=== PATIENT | female | born 1960 | race Caucasian/White ===

== ENCOUNTER → 2019-12-21 11:19 | Outpatient (BNVA) | payer OTHER, SELFPAY | PROVIDERS: Family Provider Family Medicine; PCP Nurse Practitioner; Visit Provider Family Medicine | DX: E87.6 Hypokalemia (principal); K64.4 Residual hemorrhoidal skin tags | CPT/HCPCS: 80048 ==

== ENCOUNTER → 2020-01-24 14:28 | Outpatient (BNVA) | payer OTHER, SELFPAY | PROVIDERS: Family Provider Family Medicine; PCP Nurse Practitioner; Visit Provider Family Medicine | DX: Z12.31 Encounter for screening mammogram for malignant neoplasm of breast (principal); Z01.419 Encounter for gynecological examination (general) (routine) without abnormal findings | CPT/HCPCS: 88175 ==

== ENCOUNTER 2020-03-04 10:02 | Outpatient (CLI) | payer OTHER, SELFPAY ==
--- NOTE | 2020-03-04 10:00 | MM_ITS ---
WS: [id number] BILATERAL DIGITAL SCREENING MAMMOGRAPHY WITH CAD CLINICAL INFORMATION: screening mammogram HISTORY: Screening mammogram. No current complaints. COMPARISON: TECHNIQUE: Bilateral CC and MLO views. FINDINGS: Scattered fibroglandular densities bilaterally. No suspicious focal mass, asymmetry, calcifications, or architectural distortion. No evidence of malignancy. A few incidental intramammary lymph nodes lef t breast. MM/[place] [id number] IMPRESSION: BI-RADS: 2-Benign FOLLOW UP: 1 Year Follow-up Recommend return to annual screening mammography.
== END 2020-03-04 10:03 | disposition home or self-care (01) ==
LOC: RADSHAW 10:07
PROVIDERS: PCP Family Medicine; Visit Provider Family Medicine
DX: Z12.31 Encounter for screening mammogram for malignant neoplasm of breast (principal)
CPT/HCPCS: 77067

== ENCOUNTER → 2020-06-02 15:06 | Outpatient (BNVA) | payer BC, SELFPAY | PROVIDERS: PCP Family Medicine; Visit Provider Nurse Practitioner Family | DX: Z11.59 Encounter for screening for other viral diseases (principal); J06.9 Acute upper respiratory infection, unspecified; Z20.828 Contact with and (suspected) exposure to other viral communicable diseases | CPT/HCPCS: 87635 ==

== ENCOUNTER → 2020-08-06 09:13 | Outpatient (BNVA) | payer SELFPAY | PROVIDERS: PCP Family Medicine; Visit Provider Family Medicine | DX: I10 Essential (primary) hypertension (principal); E78.5 Hyperlipidemia, unspecified; E11.9 Type 2 diabetes mellitus without complications; K21.9 Gastro-esophageal reflux disease without esophagitis; E87.6 Hypokalemia | CPT/HCPCS: 80053; 80061; 82043; 83036; 85025 ==

== ENCOUNTER → 2020-10-24 09:45 | Outpatient (BNVA) | payer SELFPAY | PROVIDERS: PCP Family Medicine; Visit Provider Family Medicine | DX: E11.9 Type 2 diabetes mellitus without complications (principal); E78.5 Hyperlipidemia, unspecified | CPT/HCPCS: 83036 ==

== ENCOUNTER → 2020-11-03 10:27 | Outpatient (BNVA) | payer SELFPAY | PROVIDERS: PCP Family Medicine; Visit Provider Family Medicine | DX: E78.5 Hyperlipidemia, unspecified (principal); E11.9 Type 2 diabetes mellitus without complications | CPT/HCPCS: 80053; 80061 ==

== ENCOUNTER → 2021-05-29 09:53 | Outpatient (BNVA) | payer SELFPAY | PROVIDERS: PCP Family Medicine; Visit Provider Family Medicine | DX: E11.9 Type 2 diabetes mellitus without complications (principal); E78.5 Hyperlipidemia, unspecified; I10 Essential (primary) hypertension | CPT/HCPCS: 80053; 80061; 82043; 83036 ==

== ENCOUNTER → 2021-07-15 16:30 | Outpatient (BNVA) | payer OTHER, SELFPAY | PROVIDERS: PCP Family Medicine; Visit Provider Nurse Practitioner Family | DX: Z20.822 Contact with and (suspected) exposure to COVID-19; Z20.828 Contact with and (suspected) exposure to other viral communicable diseases | CPT/HCPCS: 87635 ==

== ENCOUNTER → 2021-11-25 09:09 | Outpatient (BNVA) | payer SELFPAY | PROVIDERS: PCP Family Medicine; Visit Provider Family Medicine | DX: I10 Essential (primary) hypertension (principal); E11.9 Type 2 diabetes mellitus without complications; E78.5 Hyperlipidemia, unspecified; M79.671 Pain in right foot; G47.33 Obstructive sleep apnea (adult) (pediatric); E78.2 Mixed hyperlipidemia; K21.9 Gastro-esophageal reflux disease without esophagitis; L25.9 Unspecified contact dermatitis, unspecified cause; F17.210 Nicotine dependence, cigarettes, uncomplicated; Z68.31 Body mass index [BMI] 31.0-31.9, adult | CPT/HCPCS: 80053; 83036; 85025 ==

== ENCOUNTER → 2021-12-02 10:40 | Outpatient (BNVA) | payer SELFPAY | PROVIDERS: PCP Family Medicine; Visit Provider Family Medicine | DX: R79.89 Other specified abnormal findings of blood chemistry (principal) | CPT/HCPCS: 80074 ==

== ENCOUNTER → 2022-08-03 14:36 | Outpatient (BNVA) | payer SELFPAY | PROVIDERS: PCP Family Medicine; Visit Provider Family Medicine | DX: E11.9 Type 2 diabetes mellitus without complications (principal); E78.2 Mixed hyperlipidemia; I10 Essential (primary) hypertension | CPT/HCPCS: 80053; 80061; 82043; 83036; 85025 ==

== ENCOUNTER → 2023-01-31 13:33 | Outpatient (BNVA) | payer OTHER, SELFPAY | PROVIDERS: PCP Family Medicine; Visit Provider Family Medicine | DX: E11.9 Type 2 diabetes mellitus without complications (principal) | CPT/HCPCS: 80053; 83036 ==

== ENCOUNTER 2023-02-10 08:56 | Outpatient (CLI) | payer OTHER, SELFPAY ==
--- NOTE | 2023-02-10 09:08 | MM_ITS ---
WS: [id number] VIEWS: MLO and CC views both breasts. 3D digital tomosynthesis is also included in this exam. Comparison made with prior exam of 08/28/2012, 12/02/2016, 05/11/2017, 03/04/2020.. Findings: There was no sign of mass, architectural distortion or suspicious calcification in either breast. Th ere are areas of scattered fibroglandular density MM/[id number] Impression: BI-RADS: 2-Benign finding. FOLLOW-UP: 1 Year Follow-up This mammogram was also analyzed by the Computer Aided Detection System R2 Imag e Actuarial Technician.
== END 2023-02-10 08:57 | disposition home or self-care (01) ==
LOC: RAD 09:03
PROVIDERS: PCP Family Medicine; Visit Provider Family Medicine
DX: Z12.31 Encounter for screening mammogram for malignant neoplasm of breast (principal)
CPT/HCPCS: 77063; 77067; 80053; 83036

== ENCOUNTER 2023-02-14 08:41 | Outpatient (CLI) | payer OTHER, SELFPAY ==
--- NOTE | 2023-02-14 08:45 | US_ITS ---
WS: [id number] RIGHT UPPER QUADRANT ULTRASOUND HISTORY: elevated lft's COMPARISON: None available. Liver: 14.0 cm in length. Normal size liver. There are a few areas of decreased echogenicity scattere d throughout the liver which are most typical for focal fatty sparing. No mass or increased vasculari ty. Portal Vein: Normal hepatopetal flow with monophasic waveform. Gallbladder: Normally distended gallbladder with no stones or wall thickening. CBD: 0.4 cm Pancreas: Normal size and echogenicity. Right kidney: 12.2 cm in length. Normal size kidney. No hydronephrosis. Cortical cyst mid kidney lisandra ures 1.3 x 1.2 x 1.5 cm. Aorta and IVC: Unremarkable abdominal aorta and IVC. No ascites. US/US liver [id number] IMPRESSION: 1. Normal gallbladder. 2. Normal size liver with heterogeneity. Heterogeneity is due to hepatic steat osis with focal areas of sparing. 3. RIGHT renal cyst, maximum diameter 1.5 cm.
== END 2023-02-14 08:42 | disposition home or self-care (01) ==
LOC: RAD 08:43
PROVIDERS: PCP Family Medicine; Visit Provider Family Medicine
DX: R79.89 Other specified abnormal findings of blood chemistry (principal); K76.0 Fatty (change of) liver, not elsewhere classified
CPT/HCPCS: 76705

== ENCOUNTER → 2023-10-31 12:18 | Outpatient (BNVA) | payer OTHER, SELFPAY | PROVIDERS: PCP Family Medicine; Visit Provider Family Medicine | DX: E11.9 Type 2 diabetes mellitus without complications (principal); Z13.6 Encounter for screening for cardiovascular disorders | CPT/HCPCS: 80053; 80061; 82043; 83036; 85025 ==

== ENCOUNTER 2023-12-12 09:55 | Day surgery (SDC) | payer OTHER, SELFPAY ==
[2023-12-12] VITALS (10 sets, daily range): BP systolic 102–151; BP diastolic 61–88; PULSE 62–86; RESP 14–21; TEMP 36.4–36.6; O2SAT 91–96; BMI 30.7
--- NOTE | 2023-12-12 06:30 | W.PM.OPSFHP ---
Same Day Surgery H&P Indication for Procedure/HPI DATE OF PROCEDURE: December 12, 2023 CHIEF COMPLAINT/INDICATIONFOR SURGICAL PROCEDURE: rectal pain and bleeding PREOP DIAGNOSIS: hemorrhoids and skin tags PLANNED PROCEDURE: Operation Date: 12/12/23 11:20 Proposed Procedures p Exam Under Anesthesia(Not Applicable) - Ken Cabrera MD s Hemorrhoidectomy(Not Applicable) - Ken Cabrera MD Medications/Allergies* Home Medications Medication Instructions Recorded Confirmed Type diphenoxylate-atropine 2.5 1 tab PO BID PRN Diarrhea 10/08/19 12/09/23 History mg-0.025 mg tablet (Lomotil) escitalopram oxalate 20 mg tablet 30 mg PO DAILY 12/09/23 12/09/23 History (Lexapro) losartan 100 mg tablet 50 mg PO BID 12/09/23 12/09/23 History metoprolol succinate 100 mg 100 mg PO DAILY 12/09/23 12/09/23 History tablet,extended release 24 hr nystatin 100,000 unit/gram topical 1 applic topical BID PRN Rash 12/09/23 12/09/23 History powder potassium chloride 10 mEq 20 meq PO BID 12/09/23 12/09/23 History capsule,extended release rosuvastatin 10 mg tablet 10 mg PO DAILY 12/09/23 12/09/23 History Allergies/Adverse Reactions Allergy/AdvReac Type Severity Reaction Status Date / Time venlafaxine [From Effexor] Allergy Severe ALGY-Anaphy Verified 12/09/23 12:33 laxis Sulfa (Sulfonamide Allergy Intermediate ALGY-Rash Verified 12/09/23 12:33 Antibiotics) Pertinent History/Comorbid Conditions* Medical History (Updated 10/31/23 @ 12:14 by Sapphire Bean DO) ILEANA (obstructive sleep apnea) Type 2 diabetes mellitus, without long-term current use of insulin Arthritis PTSD (post-traumatic stress disorder) Hypokalemia GERD (gastroesophageal reflux disease) Hyperlipidemia Hypertension Anxiety Surgical History (Updated 01/24/20 @ 14:19 by Sapphire Bean DO) History of colonoscopy (~2009) S/P tubal ligation (~1989) S/P tonsillectomy (~1965) S/P rhinoplasty (~2009) Family History (Updated 10/08/19 @ 12:27 by Iris Grayson LPN) Hypertension Mother Son Social History Smoking and tobacco/nicotine status: light tobacco/nicotine user (smokes cigars occasionally) cigars Second hand smoke exposure: Yes Alcohol intake: former Substance/Drug Use: never Pertinent Exam Findings alert, oriented x 3, clear to auscultation bilaterally and regular rate & rhythm Recommendations Surgery/Procedure today Coding Level of Care Code Acute Code for Chg Nini
[2023-12-12] MEDS: sodium chloride 0.9% 1,000 ML 30 ML IV (10:30)
--- NOTE | 2023-12-12 10:43 | PC.NURSE ---
pt states colon prep results was watery.
[2023-12-12 10:45] LABS: Glucose Point of Care 140 mg/dL (70-110)
--- NOTE | 2023-12-12 11:03 | P.ANESASSM_ITS ---
Pre-Anesthetic Assessment Height/Weight: Height 1.57 m Weight 76.204 kg Temp Pulse Resp BP Pulse Ox O2 Del Method 97.6 F 62 18 139/87 94 Room Air 12/12/23 10:18 12/12/23 10:18 12/12/23 10:18 12/12/23 10:18 12/12/23 10:18 12/12/23 10:41 Preop Diagnosis: hemorrhoids and skin tags Operation Date: 12/12/23 11:20 Proposed Procedures p Exam Under Anesthesia(Not Applicable) - Ken Cabrera MD s Hemorrhoidectomy(Not Applicable) - Ken Cabrera MD Last intake: Intake Last Liquid Date 12/11/23 Last Liquid Time 23:15 Last Solid Date 12/11/23 Last Solid Time 12:00 Social No alcohol and No tobacco Exam alert, oriented x 3, clear to auscultation bilaterally and regular rate & rhythm Airway Submandibular: Other (Receeding Mandible ) Cervical ROM: within normal limits Mallampati: Class III Pulmonary Sleep Apnea CV/HEM Arrythmia and Hypertension GI Gastroesophageal Reflux Disease Metabolic Diabetes Mellitus and Hyperlipidemia Neuropsych Anxiety Anesthetic Plan ASA status: 3 Anesthesia: General Medications/Allergies Home Medications Medication Instructions Recorded Confirmed Last Taken Type diphenoxylate-atropine 2.5 1 tab PO BID PRN Diarrhea 10/08/19 12/09/23 Unknown History mg-0.025 mg tablet (Lomotil) alprazolam 0.25 mg tablet 0.25 mg PO TID PRN anxiety #90 tabs 11/25/21 12/09/23 Unknown Rx CPAP mask, tubing and supplies #1 ea 06/03/23 11/15/23 Unknown Rx omeprazole 20 mg capsule,delayed 20 mg PO DAILY #90 caps 09/29/23 12/09/23 12/11/23 Rx release empagliflozin 10 mg tablet 10 mg PO DAILY #90 tabs 11/01/23 12/12/23 12/11/23 09:00 Rx (Jardiance) liraglutide 0.6 mg/0.1 mL (18 mg/3 1.8 mg (0.3 mL) SUBCUT DAILY 90 11/01/23 12/09/23 12/05/23 Rx mL) subcutaneous pen injector days #27 mL (Victoza 3-Roly) metformin 500 mg tablet 500 mg PO BID 90 days #180 tabs 03/19/24 04/26/24 04/28/24 Rx escitalopram oxalate 20 mg tablet 30 mg PO DAILY 12/09/23 12/09/23 12/11/23 History (Lexapro) losartan 100 mg tablet 50 mg PO BID 12/09/23 12/09/23 12/12/23 08:30 History metoprolol succinate 100 mg 100 mg PO DAILY 12/09/23 12/09/23 12/11/23 History tablet,extended release 24 hr nystatin 100,000 unit/gram topical 1 applic topical BID PRN Rash 12/09/23 12/09/23 Unknown History powder potassium chloride 10 mEq 20 meq PO BID 12/09/23 12/09/23 12/12/23 08:30 History capsule,extended release rosuvastatin 10 mg tablet 10 mg PO DAILY 12/09/23 12/09/23 12/11/23 History Allergies Allergy/AdvReac Type Severity Reaction Status Date / Time venlafaxine [From Effexor] Allergy Severe ALGY-Anaphy Verified 12/09/23 12:33 laxis Sulfa (Sulfonamide Allergy Intermediate ALGY-Rash Verified 12/09/23 12:33 Antibiotics) Current Medications Generic Name Dose Route Start Last Admin Trade Name Freq PRN Reason Stop Dose Admin Sodium Chloride 1,000 mls @ 30 mls/hr 12/12/23 10:00 12/12/23 10:30 Sodium Chloride 0.9% IV 12/13/23 09:59 30 mls/hr .Q24H SANDIE Administration PFSH Anesthesia Medical History ILEANA (obstructive sleep apnea) Type 2 diabetes mellitus, without long-term current use of insulin Arthritis PTSD (post-traumatic stress disorder) Hypokalemia GERD (gastroesophageal reflux disease) Hyperlipidemia Hypertension Anxiety Surgical History History of colonoscopy (~2009) S/P tubal ligation (~1989) S/P tonsillectomy (~1965) S/P rhinoplasty (~2009) Family History Mother Hypertension Son Hypertension Social History Smoking and tobacco/nicotine status: light tobacco/nicotine user (smokes cigars occasionally) cigars Second hand smoke exposure: Yes Alcohol intake: former Substance/Drug Use: never Data Anesthesia Cardiac Studies: No Data to Display
[2023-12-12] MEDS: ceFAZolin 2,000 MG in sodium chloride 0.9% (plus) 50 ML 100 MG IV (13:31)
[2023-12-12] MEDS: lidocaine 2% jelly 1 APPLIC/6 ML TUBE 2 APPLIC TOPICAL (14:13)
[2023-12-12] MEDS: lidocaine-epi 1% PF 1:200,000 30 mL SDV 10 ML INJECTION (14:14)
[2023-12-12] MEDS: BUPivacaine 0.25% INJ 10 mL INJECTION (14:15)
--- NOTE | 2023-12-12 14:33 | P.OP_ITS ---
Operative Report Date of procedure: December 12, 2023 Pre-op diagnosis: Hemorrhoids Post-op diagnosis: Internal hemorrhoids, skin tag Post-op findings: There was a anterior column internal hemorrhoid with an associated external skin tag appeared to be very large in nature, likely residual from previous episodes of external hemorrhoid. On bilateral posterolateral columns only 2 small skin tags were noted. Procedure done: 1 column Hemorrhoidectomy and excision of a skin tag. Exam under anesthesia Specimens removed/disposition: Hemorrhoid anterior Surgeon: Ken Cabrera MD Industrial Technology Education Teacher: GABRIEL OR Staff Estimated blood loss: 10 Complications: none Brief History: 63-year-old female with longstanding history of hemorrhoids and skin tags who presented to my clinic for possible excision. As patient had failed nonoperative management with decided to proceed with hemorrhoidectomy Procedure: Patient was brought into the OR. General esthesia was given. Patient was placed in the prone jackknife position. The perirectal region was prepped and draped in the usual sterile fashion and a timeout was conducted. Local anesthesia was infiltrated in the Allie-rectal tissue I then proceeded with a exam under anesthesia, digital rectal examination was done and showed findings of an anterior column internal hemorrhoid. This was noted to be associated with a large skin tag on the external anal skin. No evidence of hemorrhoids on the posterolateral columns that could be identified during the examination. There was a small posterolateral skin tags. I then proceeded to insert a Donal son retractor into the anus to provide better exposure, anoscopy confirmed the findings described. I then decided to proceed with an anterior column hemorrhoidectomy and excision of the associated skin tag. I grasped the hemorrhoid with an Allis clamp and retracted towards the anal margin. I then proceeded to use a number 3-year-old Chromic Gut suture in a [id number] configuration to ligate the outflow of the hemorrhoid. This suture was tied and preserved to complete the closure. I then proceeded to use electrocautery to excise the external skin tag and continue these excision Into the anal mucosa to the area where I ligated the outflow corresponding to the apex of the wound. Once the superficial skin and mucosa were incised I then used gentle traction and blunt dissection to fibers from the internal and external anal sphincters. Careful consideration was made to preserve the integrity of the sphincters. I then used electrocautery to completely transect the hemorrhoid bundle. The specimen was sent to pathology. Using the 3-0 chromic the used to ligate the outflow I then proceeded to close the mucosa after verifying hemostasis, the mucosa was correctly aligned and careful consideration was made to provide very good alignment of the mucocutaneous junction. A separate #3-0 chromic was used for the skin from the level of the mucocutaneous junction to close the area where the skin tag was excised. At the end of the procedure hemostasis was verified. The rectal cavity was filled with 2% lidocaine gel and Gelfoam soaking Betadine was then placed in the rectal vault in close proximity to the newly created wound. A sterile dressing was applied. At the end of the procedure all counts were correct, the patient tolerated well the procedure was extubated and transferred to PACU in stable condition.
--- NOTE | 2023-12-12 15:04 | ANE.PACU2 ---
Inpatient post-anesthesia follow up: Vital signs: Temperature 97.9 F Pulse Rate 78 Respiratory Rate 18 Blood Pressure 140/79 Pulse Oximetry 91 Oxygen Delivery Me thod Room Air Oxygen Flow Rate 8 Fraction of Inspir ed Oxygen Hydration adequate: Yes Nausea and vomiting: No Pain level: 2 Mental status: Baseline
[2023-12-12] MEDS: ondansetron 2 mg/ML SDV 2 mL 4 MG IVP (15:24)
--- NOTE | 2023-12-12 15:25 | PC.NURSE ---
1524 - pt co nausea upon entering room in phase 2 - 4mg ivp zofran given per this nurse - no emesis noted
== END 2023-12-12 17:05 | disposition home or self-care (01) ==
PROVIDERS: PCP Family Medicine; Visit Provider Surgery
PROC: (CPT 46255; principal; 2023-12-12 11:10)
PROC: (CPT 46255; 2023-12-12 11:10)
DX: K64.8 Other hemorrhoids (principal); K64.4 Residual hemorrhoidal skin tags; G47.33 Obstructive sleep apnea (adult) (pediatric); E11.9 Type 2 diabetes mellitus without complications; E78.5 Hyperlipidemia, unspecified; I10 Essential (primary) hypertension; F41.9 Anxiety disorder, unspecified; F17.200 Nicotine dependence, unspecified, uncomplicated
CPT/HCPCS: 46255; 36416; 82962; 88304; J0690; J1100; J1885; J2250; J2405; J2704; J2710; J3010; J3490; J7030

== ENCOUNTER 2024-03-22 07:30 | Day surgery (SDC) | payer OTHER, SELFPAY ==
--- NOTE | 2024-03-22 06:00 | W.PM.OPSFHP ---
Same Day Surgery H&P Indication for Procedure/HPI DATE OF PROCEDURE: March 22, 2024 CHIEF COMPLAINT/INDICATIONFOR SURGICAL PROCEDURE: need for screening colonoscopy PREOP DIAGNOSIS: need for screening colonoscopy PLANNED PROCEDURE: Operation Date: 03/22/24 08:20 Proposed Procedures p Colonoscopy 41607, G0105, K64.4, Z12.11(Not Applicable) - Ken Cabrera MD Medications/Allergies* Home Medications Medication Instructions Recorded Confirmed Type diphenoxylate-atropine 2.5 1 tab PO BID PRN Diarrhea 10/08/19 03/19/24 History mg-0.025 mg tablet (Lomotil) potassium chloride 10 mEq 20 meq PO BID 12/09/23 03/19/24 History capsule,extended release Allergies/Adverse Reactions Allergy/AdvReac Type Severity Reaction Status Date / Time venlafaxine [From Effexor] Allergy Severe ALGY-Anaphy Verified 02/01/24 09:46 laxis Sulfa (Sulfonamide Allergy Intermediate ALGY-Rash Verified 02/01/24 09:46 Antibiotics) Pertinent History/Comorbid Conditions* Medical History (Updated 10/31/23 @ 12:14 by Sapphire Bean DO) ILEANA (obstructive sleep apnea) Type 2 diabetes mellitus, without long-term current use of insulin Arthritis PTSD (post-traumatic stress disorder) Hypokalemia GERD (gastroesophageal reflux disease) Hyperlipidemia Hypertension Anxiety Surgical History (Updated 01/24/20 @ 14:19 by Sapphire Bean DO) History of colonoscopy (~2009) S/P tubal ligation (~1989) S/P tonsillectomy (~1965) S/P rhinoplasty (~2009) Family History (Updated 10/08/19 @ 12:27 by Iris Grayson LPN) Hypertension Mother Son Social History Smoking and tobacco/nicotine status: current every day tobacco/nicotine user cigars Second hand smoke exposure: Yes Alcohol intake: former Substance/Drug Use: never Pertinent Exam Findings alert, oriented x 3, clear to auscultation bilaterally and regular rate & rhythm Recommendations Surgery/Procedure today Coding Level of Care Code Acute Code for Chg Fwd
--- NOTE | 2024-03-22 07:50 | ANES.PREANE2 ---
Pre-Anesthetic Assessment Height/Weight: Height 1.57 m Preop Diagnosis: need for screening colonoscopy Operation Date: 03/22/24 08:20 Proposed Procedures p Colonoscopy 01983, G0105, K64.4, Z12.11(Not Applicable) - Ken Cabrera MD Was Beta Armen taken within 24 hours: Yes Was Clonidine taken within 24 hours: N/A Social Tobacco and No alcohol 1 pack a week Exam alert, oriented x 3, clear to auscultation bilaterally and regular rate & rhythm Airway Submandibular: within normal limits Cervical ROM: within normal limits Mallampati: Class II Dentition: full History/ROS No significant history except as noted Pulmonary Sleep Apnea On Cpap is compliant with it CV/HEM Hypertension None reported GI None reported Musc/skel None reported Neuropsych Anxiety Anesthetic Plan ASA status: 2 Anesthesia: MAC Risk of > 500 ml blood loss (7ml/kg in children): No Medications/Allergies Home Medications Medication Instructions Recorded Confirmed Last Taken Type diphenoxylate-atropine 2.5 1 tab PO BID PRN Diarrhea 10/08/19 03/22/24 Unknown History mg-0.025 mg tablet (Lomotil) CPAP mask, tubing and supplies #1 ea 06/03/23 03/19/24 Unknown Rx potassium chloride 10 mEq 20 meq PO BID 12/09/23 03/22/24 03/21/24 History capsule,extended release polyethylene glycol 3350 17 gram 17 g PO DAILY #14 ea 12/12/23 03/22/24 Unknown Rx oral powder packet (Miralax) alprazolam 0.25 mg tablet 0.25 mg PO TID PRN anxiety #90 tabs 01/15/24 03/22/24 03/22/24 Rx empagliflozin 10 mg tablet 10 mg PO DAILY #90 tabs 02/15/24 03/22/24 03/21/24 Rx (Jardiance) liraglutide 0.6 mg/0.1 mL (18 mg/3 1.8 mg (0.3 mL) SUBCUT DAILY 90 02/15/24 03/22/24 03/21/24 Rx mL) subcutaneous pen injector days #27 mL (Victoza 3-Roly) escitalopram oxalate 20 mg tablet 30 mg (1.5 x 20 mg) PO DAILY #30 03/13/24 03/22/24 03/21/24 Rx (Lexapro) tabs losartan 100 mg tablet 50 mg (1/2 x 100 mg) PO BID #30 03/13/24 03/22/24 03/21/24 Rx tabs metformin 500 mg tablet 500 mg PO BID 90 days #60 tabs 03/13/24 03/22/24 03/21/24 Rx metoprolol succinate 100 mg 100 mg PO DAILY #30 tabs 03/13/24 03/22/24 03/21/24 Rx tablet,extended release 24 hr omeprazole 20 mg capsule,delayed 20 mg PO DAILY #30 caps 03/13/24 03/22/24 03/21/24 Rx release rosuvastatin 10 mg tablet 10 mg PO DAILY #90 tabs 03/20/24 03/22/24 03/21/24 Rx Allergies Allergy/AdvReac Type Severity Reaction Status Date / Time venlafaxine [From Effexor] Allergy Severe ALGY-Anaphy Verified 03/22/24 07:45 laxis Sulfa (Sulfonamide Allergy Intermediate ALGY-Rash Verified 03/22/24 07:45 Antibiotics) [facility] Anesthesia Medical History ILEANA (obstructive sleep apnea) Type 2 diabetes mellitus, without long-term current use of insulin Arthritis PTSD (post-traumatic stress disorder) Hypokalemia GERD (gastroesophageal reflux disease) Hyperlipidemia Hypertension Anxiety Surgical History History of colonoscopy (~2009) S/P tubal ligation (~1989) S/P tonsillectomy (~1965) S/P rhinoplasty (~2009) Family History Mother Hypertension Son Hypertension Social History Smoking and tobacco/nicotine status: current every day tobacco/nicotine user cigars Second hand smoke exposure: Yes Alcohol intake: former Substance/Drug Use: never Data Anesthesia Cardiac Studies: No Data to Display
[2024-03-22 07:57] VITALS: BP 144/90; PULSE 73; RESP 18; TEMP 36.4; O2SAT 93; BMI 30.7
[2024-03-22 08:17] LABS: Glucose Point of Care 164 mg/dL (70-110)
[2024-03-22] MEDS: sodium chloride 0.9% 1,000 ML 30 ML IV (08:19)
[2024-03-22 09:14] VITALS: BP 80/58; PULSE 68; RESP 14; TEMP 36.1; O2SAT 96
[2024-03-22 09:29] VITALS: BP 119/86; PULSE 61; RESP 16; O2SAT 94
[2024-03-22 09:44] VITALS: BP 140/80; PULSE 63; RESP 18; O2SAT 93
--- NOTE | 2024-03-22 10:00 | ANE.PACU2 ---
Inpatient post-anesthesia follow up: Airway intact: Yes Vital signs: Temperature 97 F Pulse Rate 63 Respiratory Rate 18 Blood Pressure 140/80 Pulse Oximetry 93 Oxygen Delivery Me thod Room Air Oxygen Flow Rate 4 Fraction of Inspir ed Oxygen Hydration adequate: Yes Nausea and vomiting: No Pain level: 1 Mental status: Baseline
== END 2024-03-22 10:00 | disposition home or self-care (01) ==
PROVIDERS: PCP Family Medicine Adult Medicine; Visit Provider Surgery
PROC: 0DJD8ZZ Inspection of Lower Intestinal Tract, Via Natural or Artificial Opening Endoscopic (ICD-10-PCS; CPT 45378; principal; 2024-03-22 08:20)
DX: Z12.11 Encounter for screening for malignant neoplasm of colon (principal); D12.2 Benign neoplasm of ascending colon; D12.8 Benign neoplasm of rectum; G47.33 Obstructive sleep apnea (adult) (pediatric); E11.9 Type 2 diabetes mellitus without complications; K21.9 Gastro-esophageal reflux disease without esophagitis; E78.5 Hyperlipidemia, unspecified; I10 Essential (primary) hypertension; F41.9 Anxiety disorder, unspecified; F17.200 Nicotine dependence, unspecified, uncomplicated
CPT/HCPCS: 36416; 45380; 45385; 82962; 88305; J2704; J7030

== ENCOUNTER → 2024-03-29 10:25 | Outpatient (BNVA) | payer OTHER, SELFPAY | PROVIDERS: PCP Family Medicine Adult Medicine; Visit Provider Family Medicine Adult Medicine | DX: E78.2 Mixed hyperlipidemia (principal); I10 Essential (primary) hypertension; E11.9 Type 2 diabetes mellitus without complications | CPT/HCPCS: 80053; 80061; 83036; 85025 ==

== ENCOUNTER 2024-09-25 11:02 | Outpatient (CLI) | payer OTHER, SELFPAY ==
--- NOTE | 2024-09-25 11:09 | MM_ITS ---
WS: [id number] BILATERAL 3D TOMOSYNTHESIS DIGITAL SCREENING MAMMOGRAPHY WITH CAD CLINICAL INFORMATION: SCREENING HISTORY: Screening mammogram. No current complaints. COMPARISON: 2022 TECHNIQUE: Bilateral CC and MLO views. FINDINGS: Scattered fibroglandular densities bilaterally. No suspicious focal mass, asymmetry, calcifications, or architectural distortion. No evidence of malignancy. A few incidental punctate calcifications. MM/MM scr tomosynthesis [id number] IMPRESSION: DENSITY: There are scattered areas of fibroglandular density. BI-RADS: 2 - Benign. FOLLOW UP: 1 Year Follow-up Recommend return to annual screening mammography.
== END 2024-09-25 11:03 | disposition home or self-care (01) ==
LOC: RAD 11:03
PROVIDERS: PCP Family Medicine; Visit Provider Family Medicine
DX: Z12.31 Encounter for screening mammogram for malignant neoplasm of breast (principal); R92.323 Mammographic fibroglandular density, bilateral breasts; R92.1 Mammographic calcification found on diagnostic imaging of breast
CPT/HCPCS: 77063; 77067